=== PATIENT | male | born 1960 ===

== ENCOUNTER 2016-10-16 13:25 | Outpatient (CLI) | payer OTHER | END 2016-10-16 13:26 | disposition home or self-care (01) | LOC: NAVSJIPCSP 13:25 | PROVIDERS: ATTEND Family Medicine | DX: L03.011 Cellulitis of right finger (principal) | CPT/HCPCS: 87070; 87205 ==

== ENCOUNTER 2016-11-08 16:34 | Emergency (ER) | payer OTHER | END 2016-11-08 17:06 | disposition home or self-care (01) | LOC: NAV ERS 16:34 | DX: K00.6 Disturbances in tooth eruption (principal); K21.9 Gastro-esophageal reflux disease without esophagitis; Z87.891 Personal history of nicotine dependence; Z79.899 Other long term (current) drug therapy | CPT/HCPCS: 99282 ==